=== PATIENT | female | born 1990 | race African-American/Black ===

== ENCOUNTER 2017-09-15 13:31 | Emergency (ER) | payer MEDICAID ==
--- NOTE | 2017-09-15 13:55 | PD ---
HPI Chief Complaint wanting ultrasound Date Seen: Sep 15, 2017 Time Seen: 13:55 Travel History International Travel<30 Days: No Contact w/Intl Traveler<30Days: No History of Present Illness HPI 27 y/o at 28 weeks presents with vaginal spotting. States she had a couple spots on underwear yesterday, then today had noticed it was pink when she wiped after urinating. Denies any heavy bleeding. Denies any abdominal pain, just cramping. Denies any gush of fluids, contractions. Endorses good movement. She just moved up here from [place], she was seeing an OB there, but has not established care here yet. Denies any problems with this or previous one. Otherwise, denies any fever/chills, nausea/vomiting, chest pain, SOB, dysuria, leg pain/swelling. Weeks Gestation: 28 Para: 1 : 2 History Past Medical History Medical History: Denies Significant Hx Obstetric History Obstetric History at term Past Surgical History Surgical History: No Previous Surgery Family History Family History: Negative Social History Alcohol Use: No Tobacco Use: No Substance Abuse: No Review of Systems General / Constitutional: Weight Gain, No: Fever, Weight Loss, Chills, Other Eyes: No: Diploplia, Blurred Vision, Visual changes, Pain, Photophobia HENT: No: Headaches, Vertigo, Lightheadedness Cardiovascular: No: Irregular Rhythm, Chest Pain or Discomfort, Palpitations, Tachycardia, Syncope, Varicosities, Edema, Cyanosis Respiratory: No: Cough, Short of Breath, Other Gastrointestinal: No: Nausea, Vomiting, Diarrhea Genitourinary: No: Urgency, Frequency, Dysuria, Decreased Urinary Output, Oliguria, Incontinence, Pelvic Pain, Discharge Musculoskeletal: No: Limited ROM, Weakness, Cramping, Edema, Pain Skin: No Rash, No Itching, No Dryness, No Lumps, No Change in Pigmentation, No Change in Nails, No Alopecia, No Lesions Neurologic: No: Weakness, Dizziness, Syncope, Focal Abnormalities, Coordination Problem, Headache, Slurred Speech, Seizures Psychiatric: No: Depression, Suicidal Ideations, Homicidal Ideation Endocrine: No: Heat Intolerance, Cold Intolerance, Polydipsia, Polyuria, Other Physical Exam Narrative GENERAL: Well-nourished, well-developed patient. SKIN: Warm and dry. HEAD: Normocephalic and atraumatic. EYES: No scleral icterus. No injection or drainage. ENT: No nasal drainage noted. Mucous membranes pink. Airway patent. NECK: Supple, trachea midline. No JVD. CARDIOVASCULAR: Regular rate and rhythm without murmurs, gallops, or rubs. RESPIRATORY: Breath sounds equal bilaterally. No accessory muscle use. ABDOMEN/GI: Abdomen soft, non-tender, bowel sounds present, no rebound, no guarding Gravid to 28 weeks size GENITOURINARY: External Genitalia: intact and normal in appearance. Speculum exam performed. No blood visualized in vaginal vault. FHT's: Category: 1 Baseline: 150 Reactive: yes Variability: moderate Decels: none EXTREMITIES: No cyanosis or edema. BACK: Nontender without obvious deformity. No CVA tenderness. NEUROLOGICAL: Awake and alert. Motor and sensory grossly within normal limits. Five out of 5 muscle strength in all muscle groups. Normal speech. Data Data Vital Signs Reviewed: Yes MDM Medical Record Reviewed: Yes Interpretation(s) 27 y/o at 28 weeks presents for vaginal spotting. Speculum exam with no bleeding visualized Category 1 FHT -Discharge home -Pt needs to establish care with OB in area, gave info of providers -Return to ED if worsening/continued bleeding, loss of fluids, contractions Diagnosis Diagnosis: Primary Impression: Qualified Codes: Z3A.28 - 28 weeks gestation of Disposition: DISCHARGE HOME Condition: Stable Patient Instructions: General Instructions Howard Kate MD Sep 15, 2017 13:55
== END 2017-09-15 14:40 | disposition home or self-care (01) ==
LOC: HOBED 13:31
DX: O26.853 Spotting complicating pregnancy, third trimester (principal); Z3A.28 28 weeks gestation of pregnancy
CPT/HCPCS: 99284